=== PATIENT | female | born 1960 | race Two or more races ===

== ENCOUNTER 2024-10-17 14:12 | Emergency (ER) | payer OTHER ==
[~2024-10-17] VITALS: Ht 165.1 cm; Wt 89.0 kg
[2024-10-17 14:28] VITALS: TEMP 98.2
[2024-10-17 15:41] LABS: APPEARANCE,URINE CLEAR (CLEAR); BILIRUBIN,URINE NEGATIVE (NEGATIVE); COLOR,URINE LIGHT YELLOW (YELLOW); GLUCOSE, URINE (UA) NEGATIVE (NEGATIVE); KETONES,URINE NEGATIVE (NEGATIVE); LEUKOCYTE ESTERASE ,URINE NEGATIVE (NEGATIVE); NITRATE,URINE NEGATIVE (NEGATIVE); OCCULT BLOOD,URINE TRACE (NEGATIVE); PROTEIN,URINE NEGATIVE (NEGATIVE); SPECIFIC GRAVITIY, URINE 1.011 (1.003-1.030)
[2024-10-17] MEDS: KETOROLAC TROMETHAMINE 30 MG/ML VIAL IM ONE (16:17)
[2024-10-17 16:18] LABS: BACTERIA,URINE None Seen /HPF (None Seen); RBC,URINE 0-2 /HPF (0-2); SQUAMOUS EPITHELIAL CELL,UR Rare /LPF (None Seen); WBC,URINE 0-2 /HPF (0-5)
[2024-10-17] MEDS ORDERED: TAMS0.4C94 PO (18:04)
[2024-10-17] MEDS ORDERED: IBUP-1492 PO (18:04)
[2024-10-17] MEDS ORDERED: METH-812 PO (18:53)
[2024-10-17 19:15] VITALS: BP 130/77; PULSE 78; RESP 16; O2SAT 98
== END 2024-10-17 19:16 | disposition home or self-care (01) ==
LOC: EMS 14:12
DX: M79.18 Myalgia, other site (principal); R10.9 Unspecified abdominal pain; J44.9 Chronic obstructive pulmonary disease, unspecified; Z87.442 Personal history of urinary calculi
CPT/HCPCS: 99285; 74176; 81001; 96372; J1885